=== PATIENT | female | born 1990 | race African-American/Black ===

== ENCOUNTER 2020-03-13 11:23 | Inpatient (IN) ==
[2020-03-13] MEDS ORDERED: ONDANSETRON 4 MG/2 ML VIAL IV STA (11:38)
[2020-03-13] MEDS ORDERED: HYDROmorphone 2 MG/1 ML VIAL IV STA (11:38)
[2020-03-13 12:23] LABS: Apearance,Urine CLEAR (Clear); Bacteria,Urine Occasional /HPF (Few); Bilirubin,Urine Negative (Negative); Blood, Urine Negative (Negative); Glucose,Urine (UA) Negative (Negative); Ketones,Urine 80 mg/dL (Negative); Mucus,Urine Few /LPF (Occasional); Nitrite,Urine Negative (Negative); Protein,Urine Negative; RBC,Urine 3 /HPF (0-4); Squamous Epithelial Cell,Urine Occasional /HPF (0-10); Urine Color Yellow (Yellow); Urine Specific Gravity 1.025 (1.001-1.035); WBC,Urine 10 /HPF (0-6)
[2020-03-13 12:27] LABS: Calcium 8.7 MG/DL (8.5-10.1); Osmolality,Calculated 271.8 MOS/KG (273-304)
[2020-03-13 12:34] LABS: Basophils % 0.4 % (0.0-0.8); Eosinophils % 0.1 % (0.00-10.9); Hematocrit 39.8 VOL% (35.7-47.0); Hemoglobin 12.3 GM/DL (12.0-16.0); Immature Granulocytes % 0.2 %; Immature Granulocytes Absolute 0.02 #; Lymphocytes # 1.1 10*3/uL (1.4-4.0); Lymphocytes % 13.2 % (21.3-54.2); Mean Corpuscular HGB Conc 30.9 GM/DL (32-36); Mean Corpuscular Volume 85.4 FL (87-102); Mean Platelet Volume 10.3 FL (9.6-12.0); Monocytes % 4.6 % (1.7-12.7); Neutrophils % 81.5 % (38.7-73.9); Platelet Count 327 T/CUMM (130-400); Red Blood Count 4.66 MC/CUMM (3.8-5.5); Red Cell Distribution Width 14.2 % (9.3-17.3); White Blood Count 8.5 T/CUMM (4-12)
[2020-03-13] MEDS ORDERED: ceFAZolin 1,000 MG VIAL ONE (14:25)
[2020-03-13] MEDS ORDERED: DEXAMETHASONE 4 MG/1 ML VIAL ONE (15:48)
[2020-03-13] MEDS ORDERED: DESFLURANE 1 UNIT/15 MINUTE INH ONE (15:48)
[2020-03-13] MEDS ORDERED: propofoL 200 MG/20 ML VIAL IV ONE (15:48)
[2020-03-13] MEDS ORDERED: LIDOCAINE 2% 5 ML VIAL ONE (15:48)
[2020-03-13] MEDS ORDERED: ONDANSETRON 4 MG/2 ML VIAL ONE (15:48)
[2020-03-13] MEDS ORDERED: fentaNYL 100 MCG/2 ML VIAL ONE (15:48)
[2020-03-13] MEDS ORDERED: MIDAZOLAM 2 MG/2 ML VIAL ONE (15:48)
[2020-03-13] MEDS ORDERED: GLYCOPYRROLATE 0.4 MG/2 ML VIAL ONE ×2 (15:49)
[2020-03-13] MEDS ORDERED: LACTATED RINGERS 2,000 ML IV ONE (15:49)
[2020-03-13] MEDS ORDERED: ROCURONIUM 100 MG/10 ML VIAL IV ONE (15:49)
[2020-03-13] MEDS ORDERED: NEOSTIGMINE 10 MG/10 ML VIAL ONE (15:49)
[2020-03-13] MEDS ORDERED: HYDROmorphone 2 MG/1 ML VIAL IV PRN (15:52)
[2020-03-13] MEDS ORDERED: MAGNESIUM HYDROXIDE SUSP 30 ML UDCUP PO PRN ×2 (15:52→16:30)
[2020-03-13] MEDS ORDERED: BENZOCAINE/MENTHOL LOZENGE 18/BOX PO PRN ×2 (15:52→16:30)
[2020-03-13] MEDS ORDERED: ONDANSETRON 4 MG/2 ML VIAL IV PRN ×3 (15:52→16:30)
[2020-03-13] MEDS ORDERED: IBUPROFEN 800 MG TABLET PO PRN ×2 (15:52→16:30)
[2020-03-13] MEDS ORDERED: BISACODYL 10 MG SUPP RECTAL PRN ×2 (15:52→16:30)
[2020-03-13] MEDS ORDERED: ACETAMINOPHEN 325 MG TABLET PO PRN ×2 (15:52→16:30)
[2020-03-13] MEDS ORDERED: LACTATED RINGERS 1,000 ML IV SCH ×2 (16:00→16:30)
[2020-03-13] MEDS ORDERED: DOCUSATE SODIUM 100 MG CAPSULE PO PRN (16:30)
[2020-03-13] MEDS: HYDROmorphone 2 MG/1 ML VIAL IV PRN ×2 (17:30→20:08)
[2020-03-13] MEDS ORDERED: ceFAZolin 1,000 MG in SYRINGE 1 EACH IV SCH (22:00)
[2020-03-13] MEDS: ceFAZolin 1,000 MG in SYRINGE 1 EACH IV SCH (22:24)
[2020-03-14 02:54] LABS: Basophils % 0.1 % (0.0-0.8); Hematocrit 33.5 VOL% (35.7-47.0); Hemoglobin 10.5 GM/DL (12.0-16.0); Immature Granulocytes % 0.4 %; Immature Granulocytes Absolute 0.06 #; Lymphocytes # 1.2 10*3/uL (1.4-4.0); Mean Corpuscular HGB Conc 31.3 GM/DL (32-36); Mean Platelet Volume 9.7 FL (9.6-12.0); Monocytes % 6.5 % (1.7-12.7); Platelet Count 273 T/CUMM (130-400); Red Blood Count 3.94 MC/CUMM (3.8-5.5); Red Cell Distribution Width 14.1 % (9.3-17.3); White Blood Count 14.8 T/CUMM (4-12)
[2020-03-14] MEDS: ceFAZolin 1,000 MG in SYRINGE 1 EACH IV SCH (06:18)
[2020-03-14] MEDS: DOCUSATE SODIUM 100 MG CAPSULE PO PRN ×2 (08:20→21:12)
[2020-03-14] MEDS: SIMETHICONE CHEW 80 MG TABLET PO PRN ×2 (08:20→14:40)
[2020-03-14] MEDS ORDERED: METOCLOPRAMIDE 10 MG/2 ML VIAL IV SCH (12:00)
[2020-03-14] MEDS: METOCLOPRAMIDE 10 MG TABLET PO SCH ×2 (14:40→21:12)
[2020-03-14] MEDS: IBUPROFEN 800 MG TABLET PO PRN ×2 (14:40→21:12)
[2020-03-15] MEDS: SIMETHICONE CHEW 80 MG TABLET PO PRN (08:00)
[2020-03-15] MEDS: METOCLOPRAMIDE 10 MG TABLET PO SCH (08:00)
[2020-03-15] MEDS: IBUPROFEN 800 MG TABLET PO PRN (08:00)
[2020-03-15] MEDS: DOCUSATE SODIUM 100 MG CAPSULE PO PRN (08:00)
[2020-03-15 09:14] VITALS: BP 132/83
== END 2020-03-15 09:20 | disposition home or self-care (01) | DRG 742 ==
LOC: N.ED 11:23 → N.EDINP 14:05 → N.OB 19:00
PROVIDERS: ADMIT Obstetrics & Gynecology; ATTEND Obstetrics & Gynecology